=== PATIENT | female | born 1965 | race Caucasian/White ===

== ENCOUNTER 2018-10-15 07:30 | Day surgery (SDC) | payer OTHER ==
[~2018-10-15] VITALS: Ht 172.7 cm; Wt 96.6 kg
[~2018-10-15 07:30] MED LIST: AMOCLA875 PO; ARIP10 PO; BUPR150T2 PO; CLIN150; CLON1 PO; CLON2; CLON2 PO; CONEST.625; Cyclobenzaprine5 MG PO; DICY20; DICY20 PO; HYDMOR2 PO; KETO10 PO; KLONOPIN; LAMO25; LITH300C; LITH300C PO; LITH300CA; LORA.5 PO; LORA1; LOVA40; Macrobid 100 M100 MG PO; OXYACE5T; PROM25 PO; SAPHRIS PO; TRAZ50 PO; VENL37.5; VENL75; VIIBRYD40 MG PO; Zyprexa10 MG PO
== END 2018-10-15 22:45 | disposition home or self-care (01) ==
LOC: ORSCMMR 07:30 → ORD 08:30 → ORSCMMR 22:45
PROVIDERS: Internal Medicine Gastroenterology
PROC: 0DBM8ZX Excision of Descending Colon, Via Natural or Artificial Opening Endoscopic, Diagnostic (ICD-10-PCS; principal; 2018-10-15 08:30)
PROC: 0DBN8ZX Excision of Sigmoid Colon, Via Natural or Artificial Opening Endoscopic, Diagnostic (ICD-10-PCS; principal; 2018-10-15 08:30)
PROC: 0DBC8ZX Excision of Ileocecal Valve, Via Natural or Artificial Opening Endoscopic, Diagnostic (ICD-10-PCS; principal; 2018-10-15 08:30)
PROC: 0DBK8ZX Excision of Ascending Colon, Via Natural or Artificial Opening Endoscopic, Diagnostic (ICD-10-PCS; principal; 2018-10-15 08:30)
PROC: 0DBH8ZX Excision of Cecum, Via Natural or Artificial Opening Endoscopic, Diagnostic (ICD-10-PCS; principal; 2018-10-15 08:30)
DX: D12.0 Benign neoplasm of cecum (principal); D12.2 Benign neoplasm of ascending colon; D12.4 Benign neoplasm of descending colon; K63.5 Polyp of colon; F17.210 Nicotine dependence, cigarettes, uncomplicated; M79.7 Fibromyalgia; F31.9 Bipolar disorder, unspecified; Z79.899 Other long term (current) drug therapy
CPT/HCPCS: J2250; J2405; J7120

== ENCOUNTER → 2018-10-22 | Outpatient (CLI) | payer OTHER ==
[2018-10-22 16:15] LABS: Source, Urine Voided
[2018-10-22 16:23] LABS: Appearance, Urine Clear (Clear); Bilirubin, Urine Neg (Neg); Blood, Urine 1+ (Neg); Color, Urine Yellow (P-Yellow); Glucose Qualitative, Urine Neg (Neg); Ketones, Urine Neg (Neg); Leukocyte Esterase, Urine Neg (Neg); Nitrite, Urine Neg (Neg); Protein, Urine Neg (Neg); Urobilinogen, Urine NORM (Normal)
[2018-10-22 16:47] LABS: Squamous Epithelial Cells Few /hpf (Few)
[2018-10-22 16:48] LABS: Bacteria Rare /hpf; White Blood Cells, Urine Not Seen /hpf (0-5)
== END | disposition home or self-care (01) ==
LOC: LAB SHORT 13:50 → LAB 13:50
PROVIDERS: Nurse Practitioner Family
DX: R10.2 Pelvic and perineal pain (principal)
CPT/HCPCS: 81001; 87086

== ENCOUNTER → 2018-11-06 | Outpatient (CLI) | payer OTHER | LOC: LAB 13:30 → LAB SHORT 13:30 | PROVIDERS: Nurse Practitioner Family | DX: Z01.411 Encounter for gynecological examination (general) (routine) with abnormal findings (principal); R10.2 Pelvic and perineal pain | CPT/HCPCS: 87070; 87205; G0123 ==

== ENCOUNTER 2019-06-14 17:04 | Emergency (ER) | payer OTHER ==
[~2019-06-14] VITALS: Ht 170.2 cm; Wt 98.0 kg
[2019-06-14] MEDS ORDERED: Zoloft50 MG PO (17:21)
[2019-06-14] MEDS ORDERED: Percocet 5-3251 EACH PO (20:17)
== END 2019-06-14 20:46 | disposition home or self-care (01) ==
LOC: ER 17:04
DX: S38.1XXA Crushing injury of abdomen, lower back, and pelvis, initial encounter (principal); S47.1XXA Crushing injury of right shoulder and upper arm, initial encounter; S20.211A Contusion of right front wall of thorax, initial encounter; S90.01XA Contusion of right ankle, initial encounter; T24.221A Burn of second degree of right knee, initial encounter; T31.0 Burns involving less than 10% of body surface; Z88.1 Allergy status to other antibiotic agents; Z88.8 Allergy status to other drugs, medicaments and biological substances; Z79.899 Other long term (current) drug therapy; F41.9 Anxiety disorder, unspecified; M79.7 Fibromyalgia; F31.9 Bipolar disorder, unspecified; F17.200 Nicotine dependence, unspecified, uncomplicated; V86.99XA Unspecified occupant of other special all-terrain or other off-road motor vehicle injured in nontraffic accident, initial encounter
CPT/HCPCS: 16020; 72170; 73610; 90471; 90714; 96374-59; 99283-25; A9270; J1170; J2405

== ENCOUNTER 2019-11-21 08:51 | Day surgery (SDC) | payer OTHER ==
[~2019-11-21] VITALS: Ht 172.7 cm; Wt 99.6 kg
[~2019-11-21 08:51] MED LIST changes: +ATOR20 PO; +ONDA4 PO; +Percocet 5-3251 EACH PO; +SERT25 PO; +Zoloft50 MG PO
--- NOTE | 2019-11-21 10:06 | NUR ---
History, Chart, Medications and Allergies reviewed before start of procedure. Patient confirms NPO status and agrees with scheduled surgery. Lungs clear T/O to Auscultation. Patient States Post-Procedure ride home has been arranged. Patient states colon prep results clear.
--- NOTE | 2019-11-21 10:36 | NUR ---
11/21/19 1036 Fernando Snyder PATIENT DETERMINED TO BE ASA APPROPRIATE FOR PROPOFOL SEDATION PRIOR TO START OF PROCEDURE BY . 3-LEAD EKG REVIEWED WITH PHYSICIAN PRIOR TO START OF PROCEDURE.History, Chart, Medications and Allergies reviewed before start of procedure.MONITOR INTACT WITH CONTINUOUS PULSE OXIMETRY AND INTERMITTENT BP.O2 VIA N/C INTACT THROUGHOUT SEDATION/PROCEDURE.
== END 2019-11-21 12:05 | disposition home or self-care (01) ==
LOC: ORSCMMR 08:51 → ORD 10:00 → ORSCMMR 12:05
PROVIDERS: Internal Medicine Gastroenterology
PROC: 0DBN8ZX Excision of Sigmoid Colon, Via Natural or Artificial Opening Endoscopic, Diagnostic (ICD-10-PCS; principal; 2019-11-21 10:00)
PROC: 0DBC8ZX Excision of Ileocecal Valve, Via Natural or Artificial Opening Endoscopic, Diagnostic (ICD-10-PCS; principal; 2019-11-21 10:00)
DX: Z86.010 Personal history of colon polyps (principal); D12.0 Benign neoplasm of cecum; K63.5 Polyp of colon; M79.7 Fibromyalgia; F31.9 Bipolar disorder, unspecified; F17.210 Nicotine dependence, cigarettes, uncomplicated; Z79.899 Other long term (current) drug therapy; E78.00 Pure hypercholesterolemia, unspecified; E66.9 Obesity, unspecified; Z68.34 Body mass index [BMI] 34.0-34.9, adult
CPT/HCPCS: 88305; J2250; J2405; J2704; J7120

== ENCOUNTER 2020-09-06 09:16 | Emergency (ER) | payer OTHER ==
[~2020-09-06] VITALS: Ht 170.2 cm; Wt 99.8 kg
[2020-09-06] MEDS ORDERED: OXYACE7.5T PO (12:01)
[2020-09-10] MEDS ORDERED: LITH300C PO (12:23)
[2020-09-10] MEDS ORDERED: LORA.5 PO (12:23)
[2020-09-10] MEDS ORDERED: ONDA4 PO (12:24)
[2020-09-10] MEDS ORDERED: ARIPIPRAZOLE5 MG PO (12:24)
[2020-09-10] MEDS ORDERED: BETAMETHASONE VAG (12:25)
[2020-09-10] MEDS ORDERED: [UNRECOGNIZED DRUG - OTHER] VAG (12:27)
[2020-09-10] MEDS ORDERED: Percocet 5-3251 EACH PO (12:27)
== END 2020-09-06 13:00 | disposition home or self-care (01) ==
LOC: ER 09:16
DX: S52.502A Unspecified fracture of the lower end of left radius, initial encounter for closed fracture (principal); F31.9 Bipolar disorder, unspecified; F41.9 Anxiety disorder, unspecified; Z88.1 Allergy status to other antibiotic agents; Z88.8 Allergy status to other drugs, medicaments and biological substances; Z87.442 Personal history of urinary calculi; Z79.899 Other long term (current) drug therapy; W10.9XXA Fall (on) (from) unspecified stairs and steps, initial encounter
CPT/HCPCS: 29105; 96374; 96375; 96376; 99283-25; J2405; J3010

== ENCOUNTER 2020-09-11 10:27 | Day surgery (SDC) | payer OTHER ==
[~2020-09-11] VITALS: Ht 170.2 cm; Wt 99.5 kg
[~2020-09-11 10:27] MED LIST changes: +ARIPIPRAZOLE5 MG PO; +BETAMETHASONE VAG; +OXYACE7.5T PO; +[UNRECOGNIZED DRUG - OTHER] VAG
--- NOTE | 2020-09-11 10:56 | NUR ---
History, Chart, Medications and Allergies reviewed before start of procedure.Patient confirms NPO status and agrees with scheduled surgery. Patient reports completing Chlorhexadine shower X2 prior to admission to hospital.Patient States Post-Procedure ride home has been arranged WITH FATHER
--- NOTE | 2020-09-11 14:08 | NUR ---
Patient up to Ambulate independently. Gait steady. Discharge instructions reviewed with patient. Patient verbalizes understanding. Copy given to patient to take home.Lungs clear T/O to Auscultation. Patient States Post-Procedure ride home has been arranged. Discharged via wheelchair to private car for ride home.
== END 2020-09-11 14:49 | disposition home or self-care (01) ==
LOC: ORSCMMR 10:27
PROVIDERS: Orthopaedic Surgery
PROC: 0PSJ04Z Reposition Left Radius with Internal Fixation Device, Open Approach (ICD-10-PCS; principal; 2020-09-11 10:45)
DX: S52.502A Unspecified fracture of the lower end of left radius, initial encounter for closed fracture (principal); F33.9 Major depressive disorder, recurrent, unspecified; F41.9 Anxiety disorder, unspecified; M79.7 Fibromyalgia; K21.9 Gastro-esophageal reflux disease without esophagitis; Z79.899 Other long term (current) drug therapy
CPT/HCPCS: C1713; J0690; J1100; J2405; J2704; J2765; J3010; J7120

== ENCOUNTER 2021-02-23 07:49 | Day surgery (SDC) | payer OTHER ==
[~2021-02-23] VITALS: Ht 172.7 cm; Wt 100.8 kg
--- NOTE | 2021-02-23 09:34 | NUR ---
02/23/21 0934 Philippe Johnson History, Chart, Medications and Allergies reviewed before start of procedure. MONITOR INTACT WITH CONTINUOUS PULSE OXIMETRY AND INTERMITTENT BP. 3-LEAD EKG REVIEWED WITH PHYSICIAN PRIOR TO START OF PROCEDURE. O2 VIA N/C INTACT THROUGHOUT SEDATION/PROCEDURE. PATIENT DETERMINED TO BE ASA APPROPRIATE FOR PROPOFOL SEDATION PRIOR TO START OF PROCEDURE BY DR. COLMENARES.
--- NOTE | 2021-02-23 11:29 | NUR ---
Discharge instructions reviewed with patient. Patient verbalizes understanding. Copy given to patient to take home. PT STATES NAUSEA IMPROVED. UP TO BATHROOM AMBULATED WELL. Discharged via wheelchair to private car for ride home.
== END 2021-02-23 11:25 | disposition home or self-care (01) ==
LOC: ORSCMMR 07:49 → ORD 09:00 → ORSCMMR 09:00
PROVIDERS: Internal Medicine Gastroenterology
PROC: 0DBP8ZX Excision of Rectum, Via Natural or Artificial Opening Endoscopic, Diagnostic (ICD-10-PCS; principal; 2021-02-23 09:00)
PROC: 0DBH8ZX Excision of Cecum, Via Natural or Artificial Opening Endoscopic, Diagnostic (ICD-10-PCS; principal; 2021-02-23 09:00)
PROC: 0DBN8ZX Excision of Sigmoid Colon, Via Natural or Artificial Opening Endoscopic, Diagnostic (ICD-10-PCS; principal; 2021-02-23 09:00)
DX: Z86.010 Personal history of colon polyps (principal); D12.0 Benign neoplasm of cecum; K63.5 Polyp of colon; K62.1 Rectal polyp; F31.9 Bipolar disorder, unspecified; M79.7 Fibromyalgia; F17.210 Nicotine dependence, cigarettes, uncomplicated; E78.00 Pure hypercholesterolemia, unspecified; Z79.899 Other long term (current) drug therapy
CPT/HCPCS: J2250; J2405; J2704; J7120

== ENCOUNTER 2022-06-01 06:54 | Day surgery (SDC) | payer OTHER ==
[~2022-06-01] VITALS: Ht 172.7 cm; Wt 105.0 kg
--- NOTE | 2022-06-01 06:51 | NUR ---
06/01/22 0651 Aria Ko HISTORY, CHART, MEDICATIONS AND ALLERGIES REVIEWED BEFORE START OF PROCEDURE. PATIENT CONFIRMS NPO STATUS AND AGREES WITH SCHEDULED PROCEDURE. 3-LEAD EKG REVIEWED WITH PHYSICIAN PRIOR TO START OF PROCEDURE. MONITOR INTACT WITH CONTINUOUS PULSE OXIMETRY,CAPNOGRAPHY, 3-LEAD EKG, INTERMITTENT BP. SUPPLEMENTAL O2 TO BE TITRATED THROUGHOUT PROCEDURE TO MAINTAIN O2 SATURATION ABOVE 90%. PATIENT DETERMINED TO BE ASA APPROPRIATE FOR PROPOFOL SEDATION PRIOR TO START OF PROCEDURE BY DR. COLMENARES.
--- NOTE | 2022-06-01 07:13 | NUR ---
Ambulatory in Day Surgery History, Chart, Medications and Allergies reviewed before start of procedure. Patient States Post-Procedure ride home has been arranged parent.
--- NOTE | 2022-06-01 09:41 | NUR ---
Discharge instructions reviewed with patient. Patient verbalizes understanding. Copy given to patient to take home. Discharged via wheelchair to private car for ride home.
== END 2022-06-01 09:42 | disposition home or self-care (01) ==
LOC: ORSCMMR 06:54 → ORD 08:00 → ORSCMMR 08:00
PROVIDERS: Internal Medicine Gastroenterology
PROC: 0DBC8ZX Excision of Ileocecal Valve, Via Natural or Artificial Opening Endoscopic, Diagnostic (ICD-10-PCS; principal; 2022-06-01 08:00)
PROC: 0DBK8ZX Excision of Ascending Colon, Via Natural or Artificial Opening Endoscopic, Diagnostic (ICD-10-PCS; principal; 2022-06-01 08:00)
PROC: 0DBN8ZX Excision of Sigmoid Colon, Via Natural or Artificial Opening Endoscopic, Diagnostic (ICD-10-PCS; principal; 2022-06-01 08:00)
PROC: 0DBM8ZX Excision of Descending Colon, Via Natural or Artificial Opening Endoscopic, Diagnostic (ICD-10-PCS; principal; 2022-06-01 08:00)
DX: K63.5 Polyp of colon (principal); D12.2 Benign neoplasm of ascending colon; D12.0 Benign neoplasm of cecum; F17.210 Nicotine dependence, cigarettes, uncomplicated; F31.9 Bipolar disorder, unspecified; E78.00 Pure hypercholesterolemia, unspecified; E66.9 Obesity, unspecified; Z68.35 Body mass index [BMI] 35.0-35.9, adult; Z79.899 Other long term (current) drug therapy
CPT/HCPCS: J2250; J2405; J2550; J2704; J7120

== ENCOUNTER → 2023-01-28 | Outpatient (CLI) | payer OTHER ==
[2023-01-28 14:55] LABS: Source, Urine Clean Catch
[2023-01-28 15:22] LABS: White Blood Cells, Urine 0-2 /hpf (0-5)
[2023-01-28 15:23] LABS: Bacteria Few /hpf; Squamous Epithelial Cells Few /hpf (Few); Yeast/Fungi Urine Rare /hpf
== END | disposition home or self-care (01) ==
LOC: LAB 14:54 → LAB SHORT 14:54
PROVIDERS: Physician Assistant
DX: R31.9 Hematuria, unspecified (principal); N39.0 Urinary tract infection, site not specified
CPT/HCPCS: 81015; 87086

== ENCOUNTER 2023-06-27 07:08 | Day surgery (SDC) | payer OTHER ==
[~2023-06-27] VITALS: Ht 172.7 cm; Wt 100.0 kg
[2023-06-27] VITALS (26 sets, daily range): BP systolic 94–136; BP diastolic 73–109
[~2023-06-27 07:08] MED LIST changes: +ESCI10 PO; +PRAV20 PO; +Robaxin750 MG PO
--- NOTE | 2023-06-27 07:33 | NUR ---
Ambulatory in Day Surgery History, Chart, Medications and Allergies reviewed before start of procedure. Pre-Op teaching done. Pt verbalizes understanding. Patient States Post-Procedure ride home has been arranged.
--- NOTE | 2023-06-27 08:02 | NUR ---
06/27/23 0802 Rebecca Bush HISTORY, CHART, MEDICATIONS AND ALLERGIES REVIEWED BEFORE START OF PROCEDURE. PATIENT CONFIRMS NPO STATUS AND AGREES WITH SCHEDULED PROCEDURE. 3-LEAD EKG REVIEWED WITH PHYSICIAN PRIOR TO START OF PROCEDURE. MONITOR INTACT WITH CONTINUOUS PULSE OXIMETRY,CAPNOGRAPHY, 3-LEAD EKG, INTERMITTENT BP. SUPPLEMENTAL O2 TO BE TITRATED THROUGHOUT PROCEDURE TO MAINTAIN O2 SATURATION ABOVE 90%. PATIENT DETERMINED TO BE ASA APPROPRIATE FOR PROPOFOL SEDATION PRIOR TO START OF PROCEDURE BY DR. COLMENARES.
--- NOTE | 2023-06-27 08:58 | NUR ---
REPORT FROM CORTEZ CARDONA RN. PT ANOX4, REPOSITIONING SELF IN BED AND ASKING FOR PO FLUIDS. TOLERATING PO FLUIDS WELL.
--- NOTE | 2023-06-27 09:28 | NUR ---
Discharge instructions reviewed with patient. Patient verbalizes understanding. Copy given to patient to take home. Patient up to Ambulate independently. Gait steady. Patient States Post-Procedure ride home has been arranged. Discharged via wheelchair to private car for ride home. ALL BELONGINGS RETURNED TO PT. PT FEELING WELL, TOLERATED CRACKERS AND PO FLUIDS WELL.
== END 2023-06-27 23:01 | disposition home or self-care (01) ==
LOC: ORSCMMR 07:08 → ORD 08:00 → ORSCMMR 08:00
PROVIDERS: Internal Medicine Gastroenterology
PROC: 0DBM8ZX Excision of Descending Colon, Via Natural or Artificial Opening Endoscopic, Diagnostic (ICD-10-PCS; principal; 2023-06-27 08:00)
PROC: 0DBN8ZX Excision of Sigmoid Colon, Via Natural or Artificial Opening Endoscopic, Diagnostic (ICD-10-PCS; principal; 2023-06-27 08:00)
PROC: 0DBK8ZX Excision of Ascending Colon, Via Natural or Artificial Opening Endoscopic, Diagnostic (ICD-10-PCS; principal; 2023-06-27 08:00)
DX: Z86.010 Personal history of colon polyps (principal); K63.5 Polyp of colon; D12.4 Benign neoplasm of descending colon; K64.8 Other hemorrhoids; M79.7 Fibromyalgia; F31.9 Bipolar disorder, unspecified; F17.210 Nicotine dependence, cigarettes, uncomplicated; E78.00 Pure hypercholesterolemia, unspecified; Z79.899 Other long term (current) drug therapy
CPT/HCPCS: 88305; J2250; J2704; J7120

== ENCOUNTER → 2024-04-29 | Outpatient (CLI) | payer OTHER ==
[2024-04-29 16:23] LABS: BASOPHILS ABSOLUTE AUTO 0.06 K/mm3 (0.00-0.23); BASOPHILS PERCENT AUTO 1 % (0-2); EOSINOPHILS ABSOLUTE AUTO 0.05 K/mm3 (0.00-0.68); EOSINOPHILS PERCENT AUTO 1 % (0-6); Hemoglobin 16.6 g/dL (11.5-16.0); IMMATURE GRAN ABSOLUTE AUTO 0.03 K/mm3 (0.00-0.10); IMMATURE GRAN PERCENT AUTO 0 % (0-1); LYMPHOCYTES ABSOLUTE AUTO 1.99 K/mm3 (0.84-5.20); LYMPHOCYTES PERCENT AUTO 22 % (21-46); MONOCYTES PERCENT AUTO 3 % (4-13); Mean Corpuscular HGB Conc 32.5 g/dL (31.5-36.5); Mean Corpuscular Volume 98 fL (80-100); Mean Platelet Volume 10.2 fL (9.1-12.4); NEUTROPHILS ABSOLUTE AUTO 6.64 K/mm3 (1.96-9.15); NEUTROPHILS PERCENT AUTO 73 % (41-73); Platelet Count 305 K/mm3 (150-400); RDW Coefficient Variation 13.3 % (11.7-14.2); RDW Standard Deviation 48.6 fL (35.1-46.3); Red Blood Cell Count 5.19 M/mm3 (3.80-5.20); White Blood Cell Count 9.07 K/mm3 (4.00-11.30)
[2024-04-29 16:39] LABS: Lithium 0.88 mmol/L (0.60-1.20)
[2024-04-29 16:53] LABS: Alanine Aminotransfer (ALT/SGP 19 U/L (12-78); Albumin, Blood 3.8 g/dL (3.4-5.0); Alk Phos 101 U/L (50-136); Anion Gap 8 mmol/L (3-11); Aspartate Aminotrans (AST/SGOT 11 U/L (12-37); Bilirubin, Total 0.4 mg/dL (0.1-1.0); Blood Urea Nitrogen 9 mg/dL (8-24); Bun/Creatinine Ratio 10.9 (12.0-20.0); CHOL/HDL RATIO 6.2; CO2, Blood 26 mmol/L (21-32); Chloride, Blood 108 mmol/L (98-108); Cholesterol 285 mg/dL (50-200); Creatinine, Blood 0.83 mg/dL (0.40-1.00); Globulin, Blood 3.9 g/dL (2.2-4.0); Glomerular Filtration Rate 81 (60-); Glucose, Blood 123 mg/dL (70-99); HDL Cholesterol 46 mg/dL (>39); LDL/HDL RATIO 4.6; Low Density Lipoprotein Chol 209 mg/dL (0-110); Potassium, Blood 4.2 mmol/L (3.5-5.5); Sodium, Blood 138 mmol/L (136-145); Total Protein, Blood 7.7 g/dL (6.4-8.2); Triglycerides 148 mg/dL (30-160); Very Low Density Lipoprot Chol 29 mg/dL (6-32)
== END ==
LOC: LAB SHORT 14:28 → LAB 14:28
PROVIDERS: Nurse Practitioner Family
DX: E78.5 Hyperlipidemia, unspecified (principal); F31.32 Bipolar disorder, current episode depressed, moderate; R73.01 Impaired fasting glucose
CPT/HCPCS: 80053; 80061; 80178; 83036; 85025

== ENCOUNTER → 2025-01-30 | Outpatient (CLI) | payer OTHER ==
[2025-01-30 17:10] LABS: BASOPHILS ABSOLUTE AUTO 0.05 K/mm3 (0.00-0.23); BASOPHILS PERCENT AUTO 1 % (0-2); EOSINOPHILS ABSOLUTE AUTO 0.08 K/mm3 (0.00-0.68); EOSINOPHILS PERCENT AUTO 1 % (0-6); Hematocrit 50.1 % (33.0-51.0); Hemoglobin 16.9 g/dL (11.5-16.0); IMMATURE GRAN ABSOLUTE AUTO 0.06 K/mm3 (0.00-0.10); IMMATURE GRAN PERCENT AUTO 1 % (0-1); LYMPHOCYTES ABSOLUTE AUTO 1.71 K/mm3 (0.84-5.20); LYMPHOCYTES PERCENT AUTO 18 % (21-46); MONOCYTES ABSOLUTE AUTO 0.39 K/mm3 (0.16-1.47); MONOCYTES PERCENT AUTO 4 % (4-13); Mean Corpuscular HGB 32.3 pg (26.0-34.0); Mean Corpuscular HGB Conc 33.7 g/dL (31.5-36.5); Mean Corpuscular Volume 96 fL (80-100); NEUTROPHILS PERCENT AUTO 77 % (41-73); NRBC ABSOLUTE 0.02 K/mm3 (0.00-0.02); NRBC Auto 0.2 /100 WBC (0.0-0.2); RDW Coefficient Variation 14.1 % (11.7-14.2); RDW Standard Deviation 49.6 fL (35.1-46.3); Red Blood Cell Count 5.23 M/mm3 (3.80-5.20); White Blood Cell Count 9.79 K/mm3 (4.00-11.30)
[2025-01-30 17:29] LABS: Mean Platelet Volume 10.3 fL (9.1-12.4); Platelet Count 302 K/mm3 (150-400)
[2025-01-30 20:09] LABS: Alanine Aminotransfer (ALT/SGP 17 U/L (12-78); Albumin, Blood 3.9 g/dL (3.4-5.0); Albumin/Globulin Ratio 1.1 (0.8-1.8); Alk Phos 83 U/L (50-136); Anion Gap 9 mmol/L (3-11); Aspartate Aminotrans (AST/SGOT 13 U/L (12-37); Bilirubin, Total 0.4 mg/dL (0.1-1.0); Blood Urea Nitrogen 13 mg/dL (8-24); Bun/Creatinine Ratio 16.6 (12.0-20.0); CHOL/HDL RATIO 5.3; CO2, Blood 26 mmol/L (21-32); Calcium, Blood 8.7 mg/dL (8.5-10.1); Chloride, Blood 105 mmol/L (98-108); Cholesterol 245 mg/dL (50-200); Creatinine, Blood 0.78 mg/dL (0.40-1.00); Globulin, Blood 3.6 g/dL (2.2-4.0); Glomerular Filtration Rate 87 (60-); Glucose, Blood 89 mg/dL (70-99); HDL Cholesterol 46 mg/dL (>39); LDL/HDL RATIO 3.7; Low Density Lipoprotein Chol 172 mg/dL (0-110); Potassium, Blood 4.2 mmol/L (3.5-5.5); Sodium, Blood 136 mmol/L (136-145); Total Protein, Blood 7.5 g/dL (6.4-8.2); Triglycerides 134 mg/dL (30-160); Very Low Density Lipoprot Chol 26 mg/dL (6-32)
== END ==
LOC: LAB SHORT 13:42 → LAB 13:42
PROVIDERS: Nurse Practitioner Family
DX: E78.5 Hyperlipidemia, unspecified (principal); F41.9 Anxiety disorder, unspecified
CPT/HCPCS: 80053; 80061; 83036; 84443; 85025

== ENCOUNTER 2025-05-29 15:20 | Inpatient (IN) | payer OTHER ==
[~2025-05-29] VITALS: Ht 177.8 cm; Wt 94.3 kg
[2025-05-29] VITALS (27 sets, daily range): BP systolic 80–130; BP diastolic 62–92
[2025-05-29] MEDS ORDERED: FentaNYL Citrate 50 MCG/ML 2 ML Injection IV ONE (15:30)
[2025-05-29] MEDS ORDERED: NS 1,000 ML IV ONE ×2 (15:32→15:41)
[2025-05-29] MEDS ORDERED: Verapamil HCL 2.5 MG/ML 2ML Injection ONE (15:32)
[2025-05-29] MEDS ORDERED: Nitroglycerin 2 MG/20 ML BTL ONE (15:32)
[2025-05-29] MEDS ORDERED: NS 250 ML IV ONE (15:32)
[2025-05-29] MEDS ORDERED: Heparin Sodium 1000 Units/ML 10ML MDV ONE (15:32)
[2025-05-29] MEDS ORDERED: Heparin Sodium 5000 Units/ML 1ML MDV IV ONE (15:35)
[2025-05-29 15:39] LABS: BASOPHILS ABSOLUTE AUTO 0.08 K/mm3 (0.00-0.23); BASOPHILS PERCENT AUTO 1 % (0-2); EOSINOPHILS ABSOLUTE AUTO 0.13 K/mm3 (0.00-0.68); EOSINOPHILS PERCENT AUTO 1 % (0-6); Hematocrit 47.6 % (33.0-51.0); Hemoglobin 15.7 g/dL (11.5-16.0); IMMATURE GRAN ABSOLUTE AUTO 0.07 K/mm3 (0.00-0.10); IMMATURE GRAN PERCENT AUTO 0 % (0-1); LYMPHOCYTES ABSOLUTE AUTO 3.79 K/mm3 (0.84-5.20); LYMPHOCYTES PERCENT AUTO 23 % (21-46); MONOCYTES ABSOLUTE AUTO 0.67 K/mm3 (0.16-1.47); MONOCYTES PERCENT AUTO 4 % (4-13); Mean Corpuscular HGB Conc 33.0 g/dL (31.5-36.5); Mean Corpuscular Volume 97 fL (80-100); NEUTROPHILS ABSOLUTE AUTO 11.74 K/mm3 (1.96-9.15); NEUTROPHILS PERCENT AUTO 71 % (41-73); NRBC ABSOLUTE 0.00 K/mm3 (0.00-0.02); NRBC Auto 0.0 /100 WBC (0.0-0.2); Platelet Count 367 K/mm3 (150-400); RDW Coefficient Variation 13.1 % (11.7-14.2); RDW Standard Deviation 47.1 fL (35.1-46.3)
[2025-05-29] MEDS ORDERED: Phenylephrine HCl 100 MCG/ML-NS 10MLSYR (1MG/10ML) ONE (15:41)
[2025-05-29] MEDS ORDERED: FentaNYL Citrate 50 MCG/ML 2 ML Injection ONE (15:41)
[2025-05-29] MEDS ORDERED: Midazolam HCl 1MG / ML 2ML Vial ONE (15:41)
[2025-05-29 15:50] LABS: Calcium, Ionized (POC) 1.02 mmol/L (1.10-1.46); Chloride (POC) 110 mmol/L (98-108); Creatinine (POC) 0.9 mg/dL (0.6-1.0); Glucose (ISTAT POC) 185 mg/dL (70-99); Hematocrit (POC) 49.0 % (36.0-46.0); Hemoglobin (POC) 16.7 g/dL (12.0-16.0); Potassium (POC) 3.5 mmol/L (3.5-5.5); Sodium (POC) 141 mmol/L (135-148); Total CO2 (POC) 18 mmol/L (21-32)
[2025-05-29 16:09] LABS: Alanine Aminotransfer (ALT/SGP 16.0 U/L (12-78); Albumin, Blood 3.7 g/dL (3.4-5.0); Albumin/Globulin Ratio 1.1 (0.8-1.8); Anion Gap 15.0 mmol/L (3-11); Aspartate Aminotrans (AST/SGOT 9.0 U/L (12-37); Bilirubin, Total 0.5 mg/dL (0.1-1.0); Blood Urea Nitrogen 11.0 mg/dL (8-24); CO2, Blood 19.0 mmol/L (21-32); Calcium, Blood 8.7 mg/dL (8.5-10.1); Chloride, Blood 109.0 mmol/L (98-108); Creatinine, Blood 0.88 mg/dL (0.40-1.00); Globulin, Blood 3.3 g/dL (2.2-4.0); Glucose, Blood 198.0 mg/dL (70-99); Potassium, Blood 3.6 mmol/L (3.5-5.5); Sodium, Blood 139.0 mmol/L (136-145); Total Protein, Blood 7.0 g/dL (6.4-8.2)
[2025-05-29] MEDS ORDERED: Ondansetron HCl 2 MG / ML 2ML Vial ONE (16:38)
[2025-05-29 16:50] LABS: Prothrombin Time Results 10.8 Sec (9.7-11.5)
[2025-05-29] MEDS ORDERED: NS 1,000 ML IV SCH (17:00)
[2025-05-29] MEDS ORDERED: AMIT75 PO (17:53)
[2025-05-29] MEDS ORDERED: HYDHCL25 PO (17:54)
[2025-05-29] MEDS ORDERED: EZET10 PO (17:54)
[2025-05-29] MEDS ORDERED: ONDA4 PO (17:55)
[2025-05-29] MEDS ORDERED: CHLO25B PO (17:55)
[2025-05-29] MEDS ORDERED: CLOBETASOL EMOL15 G1 TOP (17:56)
[2025-05-29] MEDS ORDERED: BETA.05TCA TOP (17:57)
[2025-05-29] MEDS ORDERED: PROLIA60 MG/1 ML SC (17:58)
[2025-05-29] MEDS ORDERED: Kenalog-40 m40 MG/ML INJ (18:00)
--- NOTE | 2025-05-29 18:22 | NUR ---
SUMMARY PT ARRIVES TO ICU 5 AT 1715 FROM [place] SET UP OPERATOR ER ADMIT. PT DENIES CP OR PRESSURE, DENIES NAUSEA. HAS LEVOPHED RUNNING IN PERIPHERAL IV, SEE FLOWSHEET. PT EDUCATED ABOUT SMOKING CESSATION AND IMPORTANCE OF TAKING PLAVIX EVERYDAY. HAS TR BAND TO R RADIAL, SITE IS STABLE, SPO2 ON R THUMB WITH GOOD PLETH, HAND IS PINK AND WARM. FAMILY TOOK PT'S PURSE HOME WITH THEM WITH PT'S PERMISSION.
[2025-05-29 18:34] LABS: CHOL/HDL RATIO 6.0; Cholesterol 227 mg/dL (50-200); HDL Cholesterol 38 mg/dL (>39); LDL/HDL RATIO 3.7; Low Density Lipoprotein Chol 141 mg/dL (0-110); Triglycerides 239 mg/dL (30-160); Very Low Density Lipoprot Chol 47 mg/dL (6-32)
[2025-05-29] MEDS ORDERED: Heparin Sodium,Porcine 5,000 UNIT/0.5 ML SDV SC ONE (22:29)
--- NOTE | 2025-05-29 23:01 | NUR ---
DURING BEDSIDE REPORT, PT SAID SHE WAS HAVING CP THAT WAS DIFFERENT THAN BEFORE (EPIGASTRIC VS MIDSTERNAL). RN, JAY, SAID THAT WAS NEW SINCE SHE ARRIVED. I CALLED DR. SANCHEZ TO LET HIM KNOW, NO NEW ORDERS AT THAT TIME (1909).
--- NOTE | 2025-05-29 23:04 | NUR ---
PT DOES NOT WANT ANY INFORMATION GIVEN TO SISTER, ZAID (BERNICE) ADWOA.
[2025-05-30] VITALS (66 sets, daily range): BP systolic 92–119; BP diastolic 68–94
[2025-05-30] MEDS ORDERED: Metoclopramide HCl 5MG / ML 2ML Vial IV PRN (00:25)
--- NOTE | 2025-05-30 02:14 | NUR ---
7 BEAT RUN OF [facility] @ 0139, PT ASYMPTOMATIC.
[2025-05-30 04:46] LABS: BASOPHILS ABSOLUTE AUTO 0.03 K/mm3 (0.00-0.23); BASOPHILS PERCENT AUTO 0 % (0-2); EOSINOPHILS ABSOLUTE AUTO 0.00 K/mm3 (0.00-0.68); EOSINOPHILS PERCENT AUTO 0 % (0-6); Hematocrit 44.2 % (33.0-51.0); Hemoglobin 14.7 g/dL (11.5-16.0); IMMATURE GRAN ABSOLUTE AUTO 0.05 K/mm3 (0.00-0.10); IMMATURE GRAN PERCENT AUTO 0 % (0-1); LYMPHOCYTES ABSOLUTE AUTO 1.76 K/mm3 (0.84-5.20); LYMPHOCYTES PERCENT AUTO 13 % (21-46); MONOCYTES ABSOLUTE AUTO 0.64 K/mm3 (0.16-1.47); MONOCYTES PERCENT AUTO 5 % (4-13); Mean Corpuscular HGB Conc 33.3 g/dL (31.5-36.5); Mean Corpuscular Volume 98 fL (80-100); NEUTROPHILS ABSOLUTE AUTO 11.54 K/mm3 (1.96-9.15); NEUTROPHILS PERCENT AUTO 82 % (41-73); NRBC ABSOLUTE 0.00 K/mm3 (0.00-0.02); NRBC Auto 0.0 /100 WBC (0.0-0.2); Platelet Count 282 K/mm3 (150-400); RDW Coefficient Variation 13.5 % (11.7-14.2); RDW Standard Deviation 48.1 fL (35.1-46.3)
--- NOTE | 2025-05-30 04:50 | NUR ---
TR BAND D/C'D ON 05/29/25 AT 1999. SITE WNL, SENSATION INTACT. GAUZE AND TEGADERM DRESSING. PT EDUCATED ON SITE CARE. ARM BOARD REMAINS ON.
[2025-05-30 05:08] LABS: Magnesium, Blood 2.6 mg/dL (1.6-2.4)
[2025-05-30 05:09] LABS: Alanine Aminotransfer (ALT/SGP 112.0 U/L (12-78); Albumin, Blood 3.0 g/dL (3.4-5.0); Albumin/Globulin Ratio 0.9 (0.8-1.8); Anion Gap 11.0 mmol/L (3-11); Aspartate Aminotrans (AST/SGOT 625.0 U/L (12-37); Bilirubin, Total 0.4 mg/dL (0.1-1.0); Blood Urea Nitrogen 11.0 mg/dL (8-24); CO2, Blood 18.0 mmol/L (21-32); Calcium, Blood 7.2 mg/dL (8.5-10.1); Chloride, Blood 112.0 mmol/L (98-108); Creatinine, Blood 0.7 mg/dL (0.40-1.00); Globulin, Blood 3.2 g/dL (2.2-4.0); Glucose, Blood 161.0 mg/dL (70-99); Potassium, Blood 4.3 mmol/L (3.5-5.5); Sodium, Blood 137.0 mmol/L (136-145); Total Protein, Blood 6.2 g/dL (6.4-8.2)
[2025-05-30] MEDS ORDERED: CALCIUM GLUC IN NACL, ISO-OSM 50 ML IV ONE (07:25)
[2025-05-30] MEDS ORDERED: Ondansetron 4 MG SoluTab MM PRN (08:10)
[2025-05-30] MEDS ORDERED: Mag Hydrox/Al Hydrox/Simeth 18 ML,Lidocaine 2% Viscous Soln 9 ML,Atropine/Scopalam/Hyos... PO ONE (08:45)
[2025-05-30] MEDS ORDERED: Clobetasol Prop 0.05% Cream 15 gm TOP SCH (09:00)
[2025-05-30] MEDS ORDERED: Enoxaparin 40 MG/0.4 ML SYR SC SCH (09:00)
[2025-05-30] MEDS ORDERED: Betamethasone Dip 0.05% Cream 15 gm TOP SCH (09:00)
--- NOTE | 2025-05-30 10:02 | NUR ---
ASSUMPTION OF CARE ASSUMED CARE OF PATIENT AT APPROXIMATELY 0700. PT RESTING IN BED, SLEEPING BUT AROUSABLE. PT ORIENTED X4, ANSWERS QUESTIONS APPROPRIATELY, FOLLOWS DIRECTION WHEN PROMPTED AND IS ABLE TO MAKE HER NEEDS KNOWN. PT MOVES EXTREMITIES EQUALLY BILATERALLY, ASSITS WITH SELF CARE AND REPOSITIONING IN BED. HR 50-80'S SINUS, LEVOPHED INFUSING AT 2MCG/MIN AT START OF SHIFT, TITRATED OFF, SEE FLOWSHEET FOR TITRATIONS, MAP >65. PT COMPLAINING ON 02/06 MIDSTERNAL CHEST PAIN/PRESSURE, DR. SANCHEZ AWARE. PT ON RA, OXYGEN SATURATION >90% ABDOMEN SOFT, BOWEL TONES ACTIVE THROUGHOUT. PT HAVING NAUSEA AND VOMINTING, MEDICATED PER EMAR. PT USES BEDSIDE COMMODE TO VOID. PIV IN PLACE TO RAC AND LAC. BED IN LOWEST POSITION, CALL LIGHT WITHIN REACH, CARE CONTINUES.
[2025-05-30 12:04] LABS: Lithium 0.47 mmol/L (0.60-1.20)
--- NOTE | 2025-05-30 17:37 | NUR ---
SHIFT SUMMARY PT CONTINUES TO REST IN BED, ALERT AND ORIENTED X4. PT ANSWERS QUESTIONS APPROPRIATELY, FOLLOWS DIRECTION WHEN PROMPTED AND IS ABLE TO MAKE HER NEEDS KNOWN. PT MOVES EXTREMITIES EQUALLY BILATERALLY, AMBULATES IN THE ROOM WITH MINIMAL ASSISTANCE WITH CORD MANAGEMENT. PT COMPLAINING OF 4/10 PAIN IN HER CHEST, IMPROVED THIS SHIFT. HR 50-80'S SINUS, MAP >65. PT ON RA, 2LPM VIA NC WHILE SLEEPING, OXYGEN SATURATION >92%. ABDOMEN SOFT, BOWEL TONES ACTIVE THROUGHOUT, PT COMPLAINING OF NAUSEA WITH VOMITING THIS SHIFT, MEDICATED PER EMAR WITH GOOD EFFECT. N/V HAS GREATLY IMPROVED THIS SHIFT. PT AMBULATES TO BEDSIDE TOILET TO VOID. PIV IN PLACE TO RAC AND LAC SL. ACCESS SITE TO RIGHT RADIAL, DRESSING CHANGED THIS SHIFT, C/D/I. NO OOZING OR SIGNS OF HEMATOMA FORMATION NOTED, ARM BOARD IN PLACE. BED IN LOWEST POSITION, CALL LIGHT WITHIN REACH, CARE CONTINUES.
[2025-05-30] MEDS ORDERED: Albuterol HFA200 ACT/6.7 GM INH INH PRN (19:25)
[2025-05-31] VITALS (8 sets, daily range): BP systolic 93–121; BP diastolic 69–106
--- NOTE | 2025-05-31 05:17 | NUR ---
SHIFT SUMMARY PT ALERT AND ORIENTED X 4. ABLE TO MAKE NEEDS KNOWN. PT WITH INTERMITTENT COUGH-TESSALON PEARLS ADDED AND PRN INHALER. PT DENIES NEED FOR INHALER. HR NSR IN 80S. DENIES CP/PRESSURE. PT ON 2L NC FOR SLEEP DUE TO DESAT LESS THAN 90%. PT CLEAR WITH SOME WHEEZING IN BASES. ADEQUATE URINE OUTPUT. DENIES N/V. PRN TYLENOL GIVEN FOR HEADACHE WITH IMPROVEMENT. PT RESTED WELL OVERNIGHT.
[2025-05-31 05:45] LABS: Alanine Aminotransfer (ALT/SGP 84.0 U/L (12-78); Albumin, Blood 3.0 g/dL (3.4-5.0); Albumin/Globulin Ratio 0.9 (0.8-1.8); Aspartate Aminotrans (AST/SGOT 253.0 U/L (12-37); Bilirubin, Direct 0.1 mg/dL (0.0-0.3); Bilirubin, Indirect 0.4 mg/dL (0.1-0.7); Bilirubin, Total 0.5 mg/dL (0.1-1.0); Globulin, Blood 3.4 g/dL (2.2-4.0); Total Protein, Blood 6.4 g/dL (6.4-8.2)
--- NOTE | 2025-05-31 13:38 | NUR ---
SPOKE WITH DR. STAPLETON VIA PHONE, NOTIFIED OF + ORTHOSTATIC VS AND REQUEST NOC OX FOR O2 REQUIREMENT WHEN SLEEPING. ORDERS RECEIVED FOR NOC OX. UPDATED DENTAL INTERNSHIP
--- NOTE | 2025-05-31 18:41 | NUR ---
DAY SHIFT SUMMARY MARLO IS ORIENTED X4, ABLE TO MAKE NEEDS KNOWN. VSS ON RA. SR ON TELEMTRY. + ORTHOSTATIC VS TODAY AND NOTIFIED DR. STAPLETON VIA PHONE. PLAN FOR NOC OX THIS EVENING. R RADIAL SITE WNL AND TEGADERM CDI. PLEASANT AND COOPERATIVE. SHOWERED THIS SHIFT AND PLAN FOR POSSIBLE DC TOMORROW PENDING NOC OX AND CARDIOLOGY INPUT.
[2025-06-01 00:01] VITALS: BP 82/63
[2025-06-01 00:02] VITALS: BP 81/59
[2025-06-01 00:10] VITALS: BP 101/88
[2025-06-01 03:45] VITALS: BP 102/79
[2025-06-01 05:10] LABS: Hematocrit 43.1 % (33.0-51.0); Hemoglobin 14.2 g/dL (11.5-16.0); Mean Corpuscular HGB Conc 32.9 g/dL (31.5-36.5); Mean Corpuscular Volume 98 fL (80-100); NRBC ABSOLUTE 0.00 K/mm3 (0.00-0.02); NRBC Auto 0.0 /100 WBC (0.0-0.2); Platelet Count 203 K/mm3 (150-400); RDW Coefficient Variation 13.3 % (11.7-14.2); RDW Standard Deviation 48.7 fL (35.1-46.3)
[2025-06-01 05:35] LABS: Alanine Aminotransfer (ALT/SGP 61.0 U/L (12-78); Albumin, Blood 2.8 g/dL (3.4-5.0); Albumin/Globulin Ratio 0.8 (0.8-1.8); Anion Gap 9.0 mmol/L (3-11); Aspartate Aminotrans (AST/SGOT 130.0 U/L (12-37); Bilirubin, Total 0.6 mg/dL (0.1-1.0); Blood Urea Nitrogen 10.0 mg/dL (8-24); CO2, Blood 23.0 mmol/L (21-32); Calcium, Blood 7.9 mg/dL (8.5-10.1); Chloride, Blood 109.0 mmol/L (98-108); Creatinine, Blood 0.78 mg/dL (0.40-1.00); Globulin, Blood 3.6 g/dL (2.2-4.0); Glucose, Blood 89.0 mg/dL (70-99); Potassium, Blood 4.0 mmol/L (3.5-5.5); Sodium, Blood 137.0 mmol/L (136-145); Total Protein, Blood 6.4 g/dL (6.4-8.2)
--- NOTE | 2025-06-01 06:41 | NUR ---
SUMMARY ALERT & CONVERSANT. VSS, TELE - NSR CONSISTENTLY. HAD 1 EPISODE OF SOFT BP DURING SLEEP BUT NORMALIZED AFTER AMBULATION / SOME ACTIVITY. STARTED ON SLEEP MONITORING AND ABLE TO TOLERATE RA, W/ SOME EPISODE OF MILD DESAT BET 89-90% BUT IMPROVES WHEN AROUSED FROM SLEEP AND STARTS SOME MILD ACTIVITY. DENY ANY DISTRESS, WAS ABLE TO SLEEP DEEPLY. BNP & AST ELEVATED ON AM BLOOD WORKUPS. NO OTHER CONCERN.
[2025-06-01 08:15] VITALS: BP 122/101
[2025-06-01] MEDS ORDERED: Aspir 8181 MG PO (11:27)
[2025-06-01] MEDS ORDERED: ATOR20 PO (11:27)
[2025-06-01] MEDS ORDERED: CLOP75 PO (11:28)
[2025-06-01] MEDS ORDERED: JARDIANCE10 MG PO (11:29)
[2025-06-01] MEDS ORDERED: METO25ER PO (11:32)
[2025-06-01] MEDS ORDERED: PANT20 PO (11:32)
[2025-06-01] MEDS ORDERED: NICO21TP TOP (11:32)
[2025-06-01 11:59] VITALS: BP 101/83
--- NOTE | 2025-06-01 16:33 | NUR ---
DC SUMMARY PT DISCHARGED WITH MOM VIA PRIVATE VEHICLE AFTER DISCHARGE INSTRUCTIONS REVIEWED. GIVEN ALL CHF EDUCATION AND DISCUSSED HF ZONES AT LENGTH WELL WHEN TO RETURN TO ER, FOLLOW UP, AND EDUCATION. MEDICATIONS SENT TO [facility] PER PT REQUEST WITH PT TO PICKUP TOMORROW AM - NO MEDS DUE TONIGHT THAT AREN'T HOME MEDICATIONS. PT LEFT WITH ALL BELONGINGS AND PERSONAL EFFECTS. ABLE TO TEACH BACK EDUCATIONAL MATERIAL AT TIME OF DISCHARGE. OFFICIAL DC TIME @0759
== END 2025-06-01 15:05 | disposition home or self-care (01) | DRG 321 ==
LOC: ER 15:20 → ICUE 15:25 → PCU 15:25 → ICUE 17:03 → PCU 05-30 18:20
PROVIDERS: Emergency Medicine; Internal Medicine; ADMIT Student in an Organized Health Care Education/Training Program
PROC: 027034Z Dilation of Coronary Artery, One Artery with Drug-eluting Intraluminal Device, Percutaneous Approach (ICD-10-PCS; principal; 2025-05-29)
PROC: 02C03ZZ Extirpation of Matter from Coronary Artery, One Artery, Percutaneous Approach (ICD-10-PCS; 2025-05-29)
PROC: B2111ZZ Fluoroscopy of Multiple Coronary Arteries using Low Osmolar Contrast (ICD-10-PCS; 2025-05-29)
PROC: 3E033XZ Introduction of Vasopressor into Peripheral Vein, Percutaneous Approach (ICD-10-PCS; 2025-05-30)
DX: I21.09 ST elevation (STEMI) myocardial infarction involving other coronary artery of anterior wall (principal); K72.00 Acute and subacute hepatic failure without coma; R57.0 Cardiogenic shock; I50.20 Unspecified systolic (congestive) heart failure; I45.10 Unspecified right bundle-branch block; F31.9 Bipolar disorder, unspecified; M79.7 Fibromyalgia; F41.9 Anxiety disorder, unspecified; F17.210 Nicotine dependence, cigarettes, uncomplicated; F10.10 Alcohol abuse, uncomplicated; E78.5 Hyperlipidemia, unspecified; R73.03 Prediabetes; D72.829 Elevated white blood cell count, unspecified; K21.9 Gastro-esophageal reflux disease without esophagitis; R79.89 Other specified abnormal findings of blood chemistry; I95.1 Orthostatic hypotension; E66.9 Obesity, unspecified; I25.5 Ischemic cardiomyopathy; Z68.30 Body mass index [BMI] 30.0-30.9, adult; Z88.1 Allergy status to other antibiotic agents; Z88.8 Allergy status to other drugs, medicaments and biological substances; Z79.899 Other long term (current) drug therapy; Z87.442 Personal history of urinary calculi; Z87.19 Personal history of other diseases of the digestive system; Z87.81 Personal history of (healed) traumatic fracture; Z90.710 Acquired absence of both cervix and uterus; Z90.721 Acquired absence of ovaries, unilateral; Z98.51 Tubal ligation status
CPT/HCPCS: 36415; 71045; 76937; 80047; 80053; 80061; 80076; 80178; 82330; 83036; 83735; 83880; 84484; 85014; 85025; 85027; 85610; 92973; 93005; 93010; 93306; 93454; 94762; 96374; 99152; 99153; 99285-25; A9270; C1725; C1757; C1769; C1874; C1887; C1894; C9606; J0461; J0612; J1644; J2250; J2371; J2405; J2470; J2765; J3010; J3246; J7030; J7050; Q9967

== ENCOUNTER 2025-06-04 15:30 | Inpatient (IN) | payer OTHER ==
[~2025-06-04] VITALS: Ht 177.8 cm; Wt 96.7 kg
[~2025-06-04 15:30] MED LIST changes: +AMIT75 PO; +Aspir 8181 MG PO; +BETA.05TCA TOP; +CHLO25B PO; +CLOBETASOL EMOL15 G1 TOP; +CLOP75 PO; +EZET10 PO; +HYDHCL25 PO; +JARDIANCE10 MG PO; +Kenalog-40 m40 MG/ML INJ; +METO25ER PO; +NICO21TP TOP; +PANT20 PO; +PROLIA60 MG/1 ML SC
[2025-06-04 16:08] LABS: BASOPHILS ABSOLUTE AUTO 0.05 K/mm3 (0.00-0.23); BASOPHILS PERCENT AUTO 1 % (0-2); EOSINOPHILS ABSOLUTE AUTO 0.25 K/mm3 (0.00-0.68); EOSINOPHILS PERCENT AUTO 3 % (0-6); Hematocrit 43.9 % (33.0-51.0); Hemoglobin 14.2 g/dL (11.5-16.0); IMMATURE GRAN ABSOLUTE AUTO 0.01 K/mm3 (0.00-0.10); IMMATURE GRAN PERCENT AUTO 0 % (0-1); LYMPHOCYTES ABSOLUTE AUTO 2.25 K/mm3 (0.84-5.20); LYMPHOCYTES PERCENT AUTO 25 % (21-46); MONOCYTES ABSOLUTE AUTO 0.52 K/mm3 (0.16-1.47); MONOCYTES PERCENT AUTO 6 % (4-13); Mean Corpuscular HGB Conc 32.3 g/dL (31.5-36.5); Mean Corpuscular Volume 98 fL (80-100); NEUTROPHILS ABSOLUTE AUTO 6.01 K/mm3 (1.96-9.15); NEUTROPHILS PERCENT AUTO 66 % (41-73); NRBC ABSOLUTE 0.00 K/mm3 (0.00-0.02); NRBC Auto 0.0 /100 WBC (0.0-0.2); Platelet Count 258 K/mm3 (150-400); RDW Coefficient Variation 13.2 % (11.7-14.2); RDW Standard Deviation 47.2 fL (35.1-46.3)
[2025-06-04 16:39] LABS: Alanine Aminotransfer (ALT/SGP 44.0 U/L (12-78); Albumin, Blood 3.3 g/dL (3.4-5.0); Albumin/Globulin Ratio 0.9 (0.8-1.8); Anion Gap 7.0 mmol/L (3-11); Aspartate Aminotrans (AST/SGOT 29.0 U/L (12-37); Bilirubin, Total 0.3 mg/dL (0.1-1.0); Blood Urea Nitrogen 15.0 mg/dL (8-24); CO2, Blood 27.0 mmol/L (21-32); Calcium, Blood 8.7 mg/dL (8.5-10.1); Chloride, Blood 107.0 mmol/L (98-108); Creatinine, Blood 0.79 mg/dL (0.40-1.00); Globulin, Blood 3.5 g/dL (2.2-4.0); Glucose, Blood 92.0 mg/dL (70-99); Potassium, Blood 3.7 mmol/L (3.5-5.5); Sodium, Blood 137.0 mmol/L (136-145); Total Protein, Blood 6.8 g/dL (6.4-8.2)
[2025-06-04] MEDS ORDERED: METOPROLOL SUCC25 MG PO (17:13)
[2025-06-04] MEDS ORDERED: Ondansetron HCl 2 MG / ML 2ML Vial IV ONE (17:45)
[2025-06-04] MEDS ORDERED: FentaNYL Citrate 50 MCG/ML 2 ML Injection IV ONE (19:20)
[2025-06-04] MEDS ORDERED: Metoclopramide HCl 5MG / ML 2ML Vial IV ONE (19:35)
[2025-06-04] MEDS ORDERED: Mag Hydrox/Al Hydrox/Simeth 18 ML,Lidocaine 2% Viscous Soln 9 ML,Atropine/Scopalam/Hyos... PO ONE (20:20)
[2025-06-04] MEDS ORDERED: Dose Adjust by Pharmacy XX STA (20:24)
[2025-06-04] MEDS ORDERED: Ondansetron HCl 2 MG / ML 2ML Vial IV PRN (20:25)
[2025-06-04] MEDS ORDERED: Heparin Sodium,Porcine/0.5 NS 500 ML IV SCH (20:30)
[2025-06-04] MEDS ORDERED: Heparin Sodium 5000 Units/ML 1ML MDV IV ONE (20:35)
[2025-06-04 20:45] LABS: U Amphetamine Screen Not Detected; U Barbituate Screen Not Detected; U Benzodiazapine Screen Not Detected; U Buprenorphine Screen Not Detected; U Cannabinoids Screen Not Detected; U Cocaine Screen Not Detected; U Methadone Screen Not Detected; U Methamphetamine Screen Not Detected; U Opiates Screen Not Detected; U Oxycodone Screen Not Detected; U Phencyclidine Screen Not Detected
[2025-06-04 21:05] LABS: Anti-Xa UFH, PHA Monitoring <0.10 IU/mL; Prothrombin Time Results 11.0 Sec (9.7-11.5)
[2025-06-04 21:16] LABS: Lithium <0.20 mmol/L (0.60-1.20)
[2025-06-05 00:55] VITALS: BP 106/92
--- NOTE | 2025-06-05 02:06 | NUR ---
ARRIVAL TO PCU NOTE RECEIVED REPORT FROM EYE TECHNICIAN FRITZ, PT SHORTLY ARRIVED TO PCU 15 AT 0040. A/Ox4 AND COOPERATIVE WITH CARE. ANSWERS QUESTIONS APPROPRIATELY AND ABLE TO MAKE HER NEEDS KNOWN. CARDIAC, TELE SHOWS SR 70-80'S WITH NO REPORTS OF CP OR PRESSURE. DOES ENORSES SHOULDER BLADE TENDERNESS HOWEVER. SBP STABLE AT THIS TIME. RESPIRATORY, MAINTAINS SPO2 >90% ON RA WITH SOME SOB WITH EXERTION NOTED. GI/, ABLE TO [place] [facility] [place]. DENIES ABD PAIN OR N/V/D AT THIS TIME. BS PRESENT IN ALL QUADRANTS, BUT HYPOACTIVE. SKIN C/D/I. ENDORSES SOME CHRONIC BLE NUMBNESS HOWEVER. HEP gtt INFUSING PER EMAR. 2xPIV IN BILAT AC's. BED IN LOWEST POSITION, CALL LIGHT WITHIN REACH
[2025-06-05] MEDS ORDERED: Dose Adjust by Pharmacy XX STA ×2 (03:45→10:41)
[2025-06-05] MEDS ORDERED: Heparin Sodium 5000 Units/ML 1ML MDV IV ONE (03:45)
[2025-06-05 03:59] VITALS: BP 92/68
--- NOTE | 2025-06-05 06:08 | NUR ---
SHIFT SUMMARY NO ACUTE CHANGED SINCE ARRIVAL TO PCU NOTE. SEE NOTE FOR DETAILS. HEPARIN gtt IS MANAGED BY PHARMACY AND IS INFUSING ORDERED PER EMAR. REPORTS REDUCTION IN SHOULDER BLADE PAIN THIS TIME. NO NEW ORDERS AT THIS TIME, WILL REPORT TO ONCOMING RN . JORGE L BUCHANAN OF THIS NOTE.
[2025-06-05 07:16] VITALS: BP 93/68
[2025-06-05 10:04] LABS: Hematocrit 40.4 % (33.0-51.0); Hemoglobin 13.2 g/dL (11.5-16.0); Platelet Count 214 K/mm3 (150-400)
[2025-06-05] MEDS ORDERED: Verapamil HCL 2.5 MG/ML 2ML Injection ONE (11:03)
[2025-06-05] MEDS ORDERED: NS 1,000 ML IV ONE ×2 (11:03→11:05)
[2025-06-05] MEDS ORDERED: Heparin Sodium 1000 Units/ML 10ML MDV ONE (11:03)
[2025-06-05] MEDS ORDERED: NS 250 ML IV ONE (11:03)
[2025-06-05] MEDS ORDERED: FentaNYL Citrate 50 MCG/ML 2 ML Injection ONE (11:05)
[2025-06-05] MEDS ORDERED: Midazolam HCl 1MG / ML 2ML Vial ONE (11:05)
[2025-06-05] MEDS ORDERED: Ondansetron HCl 2 MG / ML 2ML Vial ONE (11:35)
[2025-06-05 17:21] VITALS: BP 99/55
[2025-06-05 18:54] VITALS: BP 103/69
[2025-06-05] MEDS ORDERED: HYDROcodone 5-APAP 325 TAB PO ONE (19:00)
--- NOTE | 2025-06-05 19:32 | NUR ---
SHIFT SUMMARY PATIENT AOX4 ABLE TO MAKE NEEDS KNOWN. SHE DID COMPLAIN OF UPPER BACK PAIN AND NACK AND MID STERNAL PAIN PRIOR TO AND AFTER AUDIO/VIDEO TECHNICIAN. HER TR BAND WAS REMOVED NO ISSUES, NO HEMATOMA, NO BRUISING SHE DID COMPLAIN OF SOME PAIN IN THE LEFT ARM WHERE HER IV WAS AND WHERE THE TR BAND WAS HOSP AWARE AND PAIN MED WAS GIVEN AND IV WAS REMOVED. SHE IS INDEPENDENT TO THE RESTROOM AND TOLERATING HER MEALS. SHE IS AWARE OF NPO AFER 8 AM TOMORROW FOR HIDA SCAN.
[2025-06-05 19:45] VITALS: BP 99/80
--- NOTE | 2025-06-05 20:26 | NUR ---
ASSUMPTION OF CARE: ASSUMED CARE AT START OF SHIFT (1899). PT IS OING WELL AND RESTING IN BED. A&OX4 AND FOLLOWIG COMMANDS. PT DENIES ANY PAIN, CP, OR SOB AT THIS TIME. SINUS RYTHM WITH SBP: 90'S MAP >65 HR: 70'S. IV: PRIPHERL IN RAC. L ARM: TR-BAND REMOVED THIS AFTERNOON AT 16:35, SITE LOOKS GOOD, NO TENDERNESS, SWELLING, OR BLEEDING NOTED. ARM BOARD IN PLACE ON L ARM TO LIMIT RANGE OF ADELINE. LINES AND CORDS PLACED OUT OF REACH. CALL LIGHT PLACED WITHIN REACH.
[2025-06-06] VITALS (7 sets, daily range): BP systolic 92–119; BP diastolic 65–87
[2025-06-06 04:54] LABS: BASOPHILS ABSOLUTE AUTO 0.03 K/mm3 (0.00-0.23); BASOPHILS PERCENT AUTO 1 % (0-2); EOSINOPHILS ABSOLUTE AUTO 0.19 K/mm3 (0.00-0.68); EOSINOPHILS PERCENT AUTO 3 % (0-6); Hematocrit 39.8 % (33.0-51.0); Hemoglobin 13.2 g/dL (11.5-16.0); IMMATURE GRAN ABSOLUTE AUTO 0.02 K/mm3 (0.00-0.10); IMMATURE GRAN PERCENT AUTO 0 % (0-1); LYMPHOCYTES ABSOLUTE AUTO 1.51 K/mm3 (0.84-5.20); LYMPHOCYTES PERCENT AUTO 26 % (21-46); MONOCYTES ABSOLUTE AUTO 0.29 K/mm3 (0.16-1.47); MONOCYTES PERCENT AUTO 5 % (4-13); Mean Corpuscular HGB Conc 33.2 g/dL (31.5-36.5); Mean Corpuscular Volume 98 fL (80-100); NEUTROPHILS ABSOLUTE AUTO 3.70 K/mm3 (1.96-9.15); NEUTROPHILS PERCENT AUTO 65 % (41-73); NRBC ABSOLUTE 0.00 K/mm3 (0.00-0.02); NRBC Auto 0.0 /100 WBC (0.0-0.2); Platelet Count 219 K/mm3 (150-400); RDW Coefficient Variation 13.2 % (11.7-14.2); RDW Standard Deviation 47.6 fL (35.1-46.3)
[2025-06-06 05:36] LABS: Alanine Aminotransfer (ALT/SGP 27.0 U/L (12-78); Albumin, Blood 2.9 g/dL (3.4-5.0); Albumin/Globulin Ratio 0.9 (0.8-1.8); Anion Gap 7.0 mmol/L (3-11); Aspartate Aminotrans (AST/SGOT 16.0 U/L (12-37); Bilirubin, Total 0.5 mg/dL (0.1-1.0); Blood Urea Nitrogen 7.0 mg/dL (8-24); CO2, Blood 25.0 mmol/L (21-32); Calcium, Blood 7.7 mg/dL (8.5-10.1); Chloride, Blood 112.0 mmol/L (98-108); Creatinine, Blood 0.79 mg/dL (0.40-1.00); Globulin, Blood 3.3 g/dL (2.2-4.0); Glucose, Blood 92.0 mg/dL (70-99); Potassium, Blood 4.0 mmol/L (3.5-5.5); Sodium, Blood 140.0 mmol/L (136-145); Total Protein, Blood 6.2 g/dL (6.4-8.2)
--- NOTE | 2025-06-06 06:17 | NUR ---
SHIFT SUMMARY: PT IS DOING WELL, THEY WERE ABLE TO SLEEP THROUGHOUT THE NIGHT. NO ACUTE CHANGES NOTED DURING THE SHIFT. VITAL SIGNS REMAINED STABLE. PT HAS PUNCTURE SITE ON L WRIST, SITE LOOKS GOOD, NO BLEEDING, SWELLING, OR TENDERNESS NOTED. PT IS ABLE TO STAND AND AMBULATE TO RESTROOM WITH MINIMAL ASSIST. CALL LIGHT PLACED WITHIN REACH.
--- NOTE | 2025-06-06 10:50 | NUR ---
AM SHIFT NOTE: PATIENT A/OX4, CALM, PLEASANT AND COOPERATIVE c CARE. PATIENT DENIES CP/PRESSURE SOB, N/V AND DIZZINESS. PATIENT ON TELE, SR HR IN THE HIGH 70'S BPM. PATIENT REPORTS PAIN HAS IMPROVED TO RUQ THAT RADIATES TO BACK, BUT CONTINUES BELCHING INTERMITTENTLY. PATIENT NPO SINCE 0800 FOR SCHEDULED HIDA SCAN AT 1400. PATIENT SOME OF HER SCHEDULED MEDS WAS HELD THIS AM, DR. VARELA/ESTRELLITA IS AWARE. PATIENT HAD HER SHOWER AND LINEN CHANGED THIS AM. VITAL SIGNS REVIEWED. CALL LIGHT IN REACH. REPORTS GIVEN TO MARIJA DICK.
--- NOTE | 2025-06-06 15:14 | NUR ---
TRANSFER OF CARE PT DOWN IN IMAGING FOR HIDA SCAN. VSS PRIOR TO SCAN. REPORT GIVEN TO WILDLAND FIREFIGHTER. FAMILY ON FLOOR, UPDATED.
--- NOTE | 2025-06-06 15:53 | NUR ---
Assuming Care This RN assuming care of pt. Pt brought back to PCU-16 after HIDA scan complete. Pt A&O x4. VSS. Spo2 > 92% on RA. Monitor showing SR, HR 70s. Pt requesting food & drink, snack & drink provided per pt request. Pt family at bedside. Pt denying pain/discomfort, stating "I feel much better."
[2025-06-06] MEDS ORDERED: Heparin Sodium,Porcine 5,000 UNIT/0.5 ML SDV SC SCH (16:00)
--- NOTE | 2025-06-06 17:45 | NUR ---
End of Shift Pt continues to be A&O x4. VSS. Pt w/ intermittent belching. Pt reports frustration w/ not finding anything wrong w/ tests performed. Pt anticipating discharge home tomorrow.
[2025-06-06 23:40] LABS: MYOGLOBIN SERUM 29 ng/mL (<=58)
[2025-06-07 04:16] VITALS: BP 101/62
[2025-06-07 04:58] VITALS: BP 105/78
--- NOTE | 2025-06-07 06:10 | NUR ---
PT IS A PCU TRANSFER. ARRIVED ON MEDICAL FLOOR AROUND 0500. THE CHARGE NURSE, MASOOD, HELP PT GET SETTLED AND ORIENTED IN ROOM. THE RN INTRODUCED SELF TO PT. NO C/O PAIN AND NO NEEDS AT THE TIME. PT RESTING IN BED, WARM BLANKET PROVIDED. VSS. CALL LIGHT IN REACH.
[2025-06-07 07:44] LABS: BASOPHILS ABSOLUTE AUTO 0.04 K/mm3 (0.00-0.23); BASOPHILS PERCENT AUTO 1 % (0-2); EOSINOPHILS ABSOLUTE AUTO 0.19 K/mm3 (0.00-0.68); EOSINOPHILS PERCENT AUTO 2 % (0-6); Hematocrit 41.0 % (33.0-51.0); Hemoglobin 13.7 g/dL (11.5-16.0); IMMATURE GRAN ABSOLUTE AUTO 0.01 K/mm3 (0.00-0.10); IMMATURE GRAN PERCENT AUTO 0 % (0-1); LYMPHOCYTES ABSOLUTE AUTO 1.70 K/mm3 (0.84-5.20); LYMPHOCYTES PERCENT AUTO 22 % (21-46); MONOCYTES ABSOLUTE AUTO 0.38 K/mm3 (0.16-1.47); MONOCYTES PERCENT AUTO 5 % (4-13); Mean Corpuscular HGB Conc 33.4 g/dL (31.5-36.5); Mean Corpuscular Volume 98 fL (80-100); NEUTROPHILS ABSOLUTE AUTO 5.59 K/mm3 (1.96-9.15); NEUTROPHILS PERCENT AUTO 71 % (41-73); NRBC ABSOLUTE 0.00 K/mm3 (0.00-0.02); NRBC Auto 0.0 /100 WBC (0.0-0.2); Platelet Count 237 K/mm3 (150-400); RDW Coefficient Variation 13.2 % (11.7-14.2); RDW Standard Deviation 47.2 fL (35.1-46.3)
[2025-06-07 07:51] VITALS: BP 103/78
[2025-06-07 09:54] LABS: Source, Urine Clean Catch
[2025-06-07 09:59] LABS: Bilirubin, Urine Neg (Neg); Color, Urine Yellow (P-Yellow); Glucose Qualitative, Urine Neg (Neg); Ketones, Urine Neg (Neg); Leukocyte Esterase, Urine 1+ (Neg); Protein, Urine Neg (Neg); Specific Gravity, Urine 1.020 (1.003-1.022); Urobilinogen, Urine NORM (Normal)
[2025-06-07 10:07] LABS: Red Blood Cells, Urine 0-2 /hpf (0-2)
[2025-06-07 12:12] VITALS: BP 109/80
[2025-06-07] MEDS ORDERED: SULTRIDS PO (14:32)
--- NOTE | 2025-06-07 16:57 | NUR ---
DISCHARGE NOTE MS ORONA C/O MILD HEADACHE AND NECK PAIN TODAY, NO CHEST PAIN. NO SHORTNESS OF BREATH. SHE DENIED NAUSEA. SR WITH OCC PVC ON TELEMETRY. NO CALLS FROM LADIES' LOCKER ROOM ATTENDANT. MS ORONA VERBALISED A DESIRE TO BE DISCHARGED HOME. SHE VERBALISED UNDERSTANDING OF WRITTEN AND VERBAL DISCHARGE INSTRUCTIONS. PIV AND TELEMETRY WERE REMOVED. SHE WAS ASSISTED TO [facility] EXIT VIA W/C BY YARD STOCKER AT 1625HRS. SHE DENIED ANY NEW QUESTIONS OR CONCERNS PRIOR TO DISCHARGE.
== END 2025-06-07 16:31 | disposition home or self-care (01) | DRG 281 ==
LOC: ER 15:30 → PCU 15:31 → EDBEDREQ 06-05 00:21 → PCU 06-05 00:28 → MEDS 06-07 04:52
PROVIDERS: Internal Medicine; Nurse Practitioner Acute Care; Student in an Organized Health Care Education/Training Program; ADMIT Student in an Organized Health Care Education/Training Program
PROC: 4A023N8 Measurement of Cardiac Sampling and Pressure, Bilateral, Percutaneous Approach (ICD-10-PCS; principal; 2025-06-05)
PROC: B2111ZZ Fluoroscopy of Multiple Coronary Arteries using Low Osmolar Contrast (ICD-10-PCS; 2025-06-05)
DX: I21.4 Non-ST elevation (NSTEMI) myocardial infarction (principal); I23.7 Postinfarction angina; I50.22 Chronic systolic (congestive) heart failure; I25.10 Atherosclerotic heart disease of native coronary artery without angina pectoris; F31.9 Bipolar disorder, unspecified; E78.5 Hyperlipidemia, unspecified; R73.03 Prediabetes; D72.829 Elevated white blood cell count, unspecified; M81.0 Age-related osteoporosis without current pathological fracture; I95.89 Other hypotension; K80.20 Calculus of gallbladder without cholecystitis without obstruction; Z87.442 Personal history of urinary calculi; Z95.5 Presence of coronary angioplasty implant and graft; Z79.02 Long term (current) use of antithrombotics/antiplatelets; Z79.82 Long term (current) use of aspirin; Z79.899 Other long term (current) drug therapy; Z88.8 Allergy status to other drugs, medicaments and biological substances
CPT/HCPCS: 36415; 71046; 76705; 76937; 78226; 80053; 80178; 81001; 83605; 83690; 83874; 83880; 84145; 84484; 85014; 85018; 85025; 85049; 85520; 85610; 85651; 85730; 86140; 87086; 93005; 93010; 93308; 93321; 93454; 96374; 96375; 96376; 99152; 99285-25; A9270; A9537; C1769; C1894; G0378; J1644; J2250; J2405; J2470; J2765; J3010; J7030; J7050; Q9967

== ENCOUNTER → 2025-09-15 | Outpatient (CLI) | payer OTHER ==
[~2025-09-15] MED LIST changes: +METOPROLOL SUCC25 MG PO; +SULTRIDS PO
[2025-09-16 11:57] LABS: Bacterial Vaginosis PCR Negative (NEGATIVE); Candida Group, PCR NOT DETECTED (NOT DETECT); Candida glabrata-krusei, PCR NOT DETECTED (NOT DETECT)
== END ==
LOC: LAB 11:20 → LAB SHORT 11:20
PROVIDERS: Nurse Practitioner Family
DX: R39.9 Unspecified symptoms and signs involving the genitourinary system (principal)
CPT/HCPCS: 81515; 87086